=== PATIENT | male | born 1960 | race Caucasian/White ===

== ENCOUNTER 2017-04-04 00:35 | Emergency (ER) | payer OTHER, MEDICAID ==
[~2017-04-04] VITALS: Ht 139.7 cm; Wt 46.7 kg
[2017-04-04 00:36] VITALS: BP 121/73
--- NOTE | 2017-04-04 00:43 | NUR ---
PT TAKEN TO BEDPATIENT PRESENTS TO ED WITH COUGH X 3 DAYS . PT DENIES N/V/D; SKIN IS PINK/WARM/DRY; AAOX4 WITH EVEN AND STEADY GAIT; LUNGS CLEAR BL; HR EVEN AND REGULAR; PATIENT STATES PAIN OF 0/10 AT THIS TIME; PATIENT POSITIONED FOR COMFORT; HOB ELEVATED; BEDRAILS UP X2; BED DOWN. ER MD MADE AWARE OF PT STATUS.
[2017-04-04] MEDS ORDERED: predniSONE 20 MG TAB PO ONE (00:45)
[2017-04-04] MEDS ORDERED: ALBUTEROL 0.083% 2.5 MG/3 ML NEBU INH ONE (00:45)
[2017-04-04] MEDS ORDERED: ALBUTEROL SULFATE/IPRATROPIU 3 ML SOL IH ONE (00:45)
--- NOTE | 2017-04-04 03:18 | NUR ---
XX-Ray at bedside.
[2017-04-04 03:35] VITALS: BP 100/68
--- NOTE | 2017-04-04 03:35 | NUR ---
Patient discharged with v/s stable. Written and verbal after care instructions given and explained. Patient alert, oriented and verbalized understanding of instructions. Wheel Chair Assisted with by caregiver. All questions addressed prior to discharge. ID band removed. Patient advised to follow up with PMD. Rx of PRELONE given. Patient educated on indication of medication including possible reaction and side effects. Opportunity to ask questions provided and answered.
== END 2017-04-04 03:35 | disposition home or self-care (01) ==
LOC: MED 00:35
DX: R05 Cough (principal); R06.02 Shortness of breath
CPT/HCPCS: 71045; 94640; 99283; J7512; J7613; J7620; Q0092